=== PATIENT | female | born 1990 | race Caucasian/White ===

== ENCOUNTER 2017-10-31 15:24 | Emergency (ER) | payer OTHER ==
[~2017-10-31] VITALS: Ht 170.2 cm; Wt 57.0 kg
[~2017-10-31 15:24] MED LIST: MTR600X PO; PRENTAB26 PO
[2017-10-31 15:29] VITALS: O2SAT 98
[2017-10-31 15:30] VITALS: TEMP 37.1; Ht 170.2 cm; Wt 57.0 kg
[2017-10-31] MEDS ORDERED: SODIUM CHLORIDE 0.9% 1000ML 1,000 ML IV STA (15:36)
--- NOTE | 2017-10-31 15:36 | EMERGENCY ROOM VISIT NOTE ---
History Report prepared by Elpidio: Arnaldo Moreno Under the Supervision of: Dr. Sierra Peguero M.D. First contact with patient: 15:27 Chief Complaint: SYNCOPE Stated Complaint: SYNCOPE History of Present Illness The patient is a 27 year old female who presents to the Emergency Room via EMS with complaints of a syncopal episode that occurred prior to arrival this afternoon. She states that she was at work and was walking to the back of the store, when she started to get really dizzy. The patient notes that she felt like the ground was coming out from underneath her. She says that she then passed out and hit her head on the floor. She notes that she thinks that she woke back up within a couple minutes. The patient says that she did eat today. She states that she ate half of an actual waffle for breakfast, and then ate a salad for lunch around an hour before the episode. The patient notes that she has been keeping up with her fluids. She says that she had a few syncopal episodes as a child, but has not had one since 2000. She adds that she has felt completely fine recently, and has not had any illnesses. She denies any vomiting , diarrhea, urinary symptoms, leg swelling, or leg pain. The patient states that she has no chronic medical problems, and does not take any medications daily. She is not on control, and she is a non-smoker. She denies any alcohol or recreational drug use yesterday. The patient notes no chance of . 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 Review of Systems See HPI for pertinent positives & negatives. A total of 10 systems reviewed and were otherwise negative. Past Medical & Surgical Medical Problems: (1) No chronic diseases present Family History No pertinent family history Social History Smoking Status: Unknown if Ever Smoked Alcohol Use: none Marital Status: single Occupation Status: employed Allergies Coded Allergies: No Known Allergies (Unverified , 10/31/17) Physical Exam Vital Signs Date Time Temp Pulse Resp B/P (MAP) Pulse Ox O2 Delivery O2 Flow Rate FiO2 10/31/17 18:11 78 117/82 100 10/31/17 16:24 82 10/31/17 15:51 96 116/70 89 120/77 94 135/88 10/31/17 15:50 89 120/77 99 Room Air 10/31/17 15:30 37.1 88 139/81 100 Room Air 10/31/17 15:29 98 Room Air Physical Exam Vital signs reviewed. General: Well-appearing 27 year old female, in no significant distress. HEENT: No scleral icterus, PERRLA, neck supple. Atraumatic. Cardiovascular: Regular rate and rhythm, no extra sounds. Pulmonary: Clear to auscultation bilaterally, normal work of breathing. Abdomen: Soft, nontender, nondistended, positive bowel sounds. Musculoskeletal: Atraumatic, no peripheral edema. Neurologic: Patient awake alert and oriented x 3, full strength in all 4 extremities. Cranial nerves 2 through 12 grossly intact. Skin: Warm, dry, no rash Medical Decision & Procedures ER Provider Diagnostic Interpretation: X-ray results as stated below per interpretation by me and the radiologist: CHEST 2 VIEWS ROUTINE CLINICAL HISTORY: 27 years-old Female presenting with syncope. TECHNIQUE: PA and lateral views of the chest were obtained. COMPARISON: None. FINDINGS: Cardiomediastinal silhouette normal. Lungs and pleural spaces clear. Osseous structures normal. Upper abdomen normal. IMPRESSION: 1. No acute cardiopulmonary disease. Electronically signed by: Maik Wilson M.D. 10/31/2017 4:54 PM Dictated Date/Time: 10/31/2017 4:53 PM Laboratory Results 10/31/17 16:11 Red Blood Count 4.50, Mean Corpuscular Volume 84.2, Mean Corpuscular Hemoglobin 28.7, Mean Corpuscular Hemoglobin Concent 34.0, Mean Platelet Volume 9.1, Neutrophils (%) (Auto) 66.8, Lymphocytes (%) (Auto) 25.5, Monocytes (%) (Auto) 6.0, Eosinophils (%) (Auto) 0.9, Basophils (%) (Auto) 0.4, Neutrophils # (Auto) 3.68, Lymphocytes # (Auto) 1.40, Monocytes # (Auto) 0.33, Eosinophils # (Auto) 0.05, Basophils # (Auto) 0.02 10/31/17 16:11 Test 10/31/17 15:50 10/31/17 16:11 10/31/17 16:17 Urine Color YELLOW Urine Appearance CLEAR (CLEAR) Urine pH 5.0 (4.5-7.5) Urine Specific [place] 1.011 (1.000-1.030) Urine Protein NEG (NEG) Urine Glucose (UA) NEG (NEG) Urine Ketones NEG (NEG) Urine Occult Blood TRACE (NEG) Urine Nitrite NEG (NEG) Urine Bilirubin NEG (NEG) Urine Urobilinogen NEG (NEG) Urine Leukocyte Esterase MODERATE (NEG) Urine WBC (Auto) 10-30 /hpf (0-5) Urine RBC (Auto) 0-4 /hpf (0-4) Urine Hyaline Casts (Auto) 5-10 /lpf (0-5) Urine Epithelial Cells (Auto) >30 /lpf (0-5) Urine Bacteria (Auto) NEG (NEG) Urine Test NEG (NEG) White Blood Count 5.50 K/uL (4.8-10.8) Red Blood Count 4.50 M/uL (4.2-5.4) Hemoglobin 12.9 g/dL (12.0-16.0) Hematocrit 37.9 % (37-47) Mean Corpuscular Volume 84.2 fL (80-100) Mean Corpuscular Hemoglobin 28.7 pg (25-34) Mean Corpuscular Hemoglobin Concent 34.0 g/dl (32-36) Platelet Count 215 K/uL (130-400) Mean Platelet Volume 9.1 fL (7.4-10.4) Neutrophils (%) (Auto) 66.8 % Lymphocytes (%) (Auto) 25.5 % Monocytes (%) (Auto) 6.0 % Eosinophils (%) (Auto) 0.9 % Basophils (%) (Auto) 0.4 % Neutrophils # (Auto) 3.68 K/uL (1.4-6.5) Lymphocytes # (Auto) 1.40 K/uL (1.2-3.4) Monocytes # (Auto) 0.33 K/uL (0.11-0.59) Eosinophils # (Auto) 0.05 K/uL (0-0.5) Basophils # (Auto) 0.02 K/uL (0-0.2) RDW Standard Deviation 38.7 fL (36.4-46.3) RDW Coefficient of Variation 12.7 % (11.5-14.5) Immature Granulocyte % (Auto) 0.4 % Immature Granulocyte # (Auto) 0.02 K/uL (0.00-0.02) Anion Gap 5.0 mmol/L (3-11) Est Creatinine Clear Calc Drug Dose 123.7 ml/min Estimated GFR () 144.2 Estimated GFR (Non- 124.4 BUN/Creatinine Ratio 18.2 (10-20) Calcium Level 8.4 mg/dl (8.5-10.1) Total Bilirubin 1.4 mg/dl (0.2-1) Direct Bilirubin 0.3 mg/dl (0-0.2) Aspartate Amino Transf (AST/SGOT) 23 U/L (15-37) Alanine Aminotransferase (ALT/SGPT) 40 U/L (12-78) Alkaline Phosphatase 52 U/L (45-117) Total Protein 7.2 gm/dl (6.4-8.2) Albumin 3.8 gm/dl (3.4-5.0) Thyroid Stimulating Hormone (TSH) < 0.005 uIu/ml (0.300-4.500) Free Thyroxine 2.14 ng/dl (0.80-1.60) Bedside D-Dimer 353 ng/mlFEU (0-450) Laboratory results per my review. Medications Administered Medications (Trade) Dose Ordered Sig/Jairo Route Start Time Stop Time Status Last Admin Dose Admin Sodium Chloride 1,000 ml @ 999 mls/hr Q1H1M STAT IV 10/31/17 15:36 10/31/17 16:36 DC 10/31/17 16:14 999 MLS/HR ECG Per My Interpretation Indication: syncope Rate (beats per minute): 86 Rhythm: normal sinus Findings: other (left atrial enlargement, T-wave abnormalities in inferior and anterior leads) ED Course 1528: Past medical records reviewed. The patient was evaluated in room C9. A complete history and physical examination was performed. 1536: NSS 1000 ml @ 999 mls/hr IV. 1558: I reevaluated the patient and she is feeling like she does not want to do the CT scan as she is worried about the cost and insurance. I explained the risks and benefits but she is declining. She is willing to go on with the other tests. 1725: Upon reevaluation, the patient appeared to be resting comfortably. I discussed findings with her. She verbalized agreement of the treatment plan. She was discharged home. Medical Decision Differential diagnosis: Etiologies such as vasovagal event, infection, hypoglycemia, electrolyte abnormalities, cardiac sources, intracerebral event, toxicologic, neurologic, as well as others were entertained. This patient was evaluated and appeared to be in no significant distress. IV access was obtained and laboratory work was drawn. Patient was placed on the ict sales representative and found to be a normal sinus rhythm. She was hydrated with normal saline solution. Patient initially declined any evaluation as she is concerned about her insurance coverage. Her mother expressed concerns about the etiology of her syncope as she has not had an episode in several years. The patient had little to no warning prior to the syncopal episode. She agreed to laboratory evaluation which was fairly healing. Urinalysis and test are normal. EKG reveals no evidence of ischemia or ectopy. D-dimer is normal. Chest x-ray reveals no evidence of acute abnormality. The patient was feeling improved after IV hydration. She was discharged to the care of her mother. She was strongly advised to follow-up with PCP for reevaluation and further testing if necessary. She will return to the ER for worsening of symptoms or any medical concerns. Medication Reconcilliation Current Medication List: was personally reviewed by me Blood Pressure Screening Patient's blood pressure: Elevated blood pressure Blood pressure disposition: Elevated BP felt to be situational Impression Primary Impression: Syncope Scribe Attestation The scribe's documentation has been prepared under my direction and personally reviewed by me in its entirety. I confirm that the note above accurately reflects all work, treatment, procedures, and medical decision making performed by me. Departure Information Dispostion Home / Self-Care Referrals No Doctor, Assigned (PCP) Patient Instructions [facility] Additional Instructions Diagnosis: Syncope Please drink plenty of clear fluids. Eat frequent and balanced snacks including protein, fat, carbohydrate. Follow-up with your primary care physician within the next 1-2 weeks for reevaluation. Return to the ED for worsening of symptoms or any medical concerns.
[2017-10-31 16:20] LABS: BASO % 0.4 %; BASO ABS # 0.02 K/uL (0-0.2); EOS % 0.9 %; EOS ABS # 0.05 K/uL (0-0.5); HEMATOCRIT 37.9 % (37-47); HEMOGLOBIN 12.9 g/dL (12.0-16.0); IG# 0.02 K/uL (0.00-0.02); LYMPH % 25.5 %; MEAN CELL VOLUME 84.2 fL (80-100); MEAN CORPUSCULAR HEMOGLOBIN 28.7 pg (25-34); MEAN PLATELET VOLUME 9.1 fL (7.4-10.4); MONO ABS # 0.33 K/uL (0.11-0.59); NEUT % 66.8 %; NEUT ABS # 3.68 K/uL (1.4-6.5); PLATELET COUNT 215 K/uL (130-400); RED CELL DISTRIBUTION WIDTH CV 12.7 % (11.5-14.5); RED CELL DISTRIBUTION WIDTH SD 38.7 fL (36.4-46.3)
[2017-10-31 16:38] LABS: ALBUMIN 3.8 gm/dl (3.4-5.0); ALT/SGPT 40 U/L (12-78); AST/SGOT 23 U/L (15-37); BLOOD UREA NITROGEN 11 mg/dl (7-18); CALCIUM 8.4 mg/dl (8.5-10.1); CARBON DIOXIDE 27 mmol/L (21-32); CREATININE 0.62 mg/dl (0.60-1.20); GLUCOSE 95 mg/dl (70-99); POTASSIUM 3.5 mmol/L (3.5-5.1); SODIUM 140 mmol/L (136-145)
[2017-10-31 16:48] LABS: ALKALINE PHOSPHATASE 52 U/L (45-117); TOTAL PROTEIN 7.2 gm/dl (6.4-8.2)
--- NOTE | 2017-10-31 16:55 | DIAGNOSTIC IMAGING REPORT ---
CHEST 2 VIEWS ROUTINE CLINICAL HISTORY: 27 years-old Female presenting with syncope. TECHNIQUE: PA and lateral views of the chest were obtained. COMPARISON: None. FINDINGS: Cardiomediastinal silhouette normal. Lungs and pleural spaces clear. Osseous structures normal. Upper abdomen normal. IMPRESSION: 1. No acute cardiopulmonary disease. Electronically signed by: Maik Wilson M.D. 10/31/2017 4:54 PM Dictated Date/Time: 10/31/2017 4:53 PM
[2017-10-31 18:11] VITALS: BP 117/82; PULSE 78; O2SAT 100
== END 2017-10-31 18:12 | disposition home or self-care (01) ==
LOC: EDBD 15:24 → C.EDC 15:25
DX: R55 Syncope and collapse (principal)